=== PATIENT | female | born 1965 | race Caucasian/White ===

== ENCOUNTER 2017-08-15 19:55 | Inpatient (IN) | payer OTHER ==
--- NOTE | 2017-08-15 20:15 | CPEKG ---
Heart Rate: 86 RR Interval: 698 P-R Interval: 132 QRSD Interval: 76 QT Interval: 420 QTC Interval: 503 P [place]: 70 QRS [place]: 60 T Wave [place]: 7 EKG Severity - ABNORMAL ECG - EKG Impression: SINUS RHYTHM EKG Impression: PROBABLE LEFT ATRIAL ABNORMALITY EKG Impression: PROBABLE LEFT VENTRICULAR HYPERTROPHY EKG Impression: BORDERLINE PROLONGED QT INTERVAL Electronically Signed By: Kwan Taveras 15-Aug-2017 23:15:05
[2017-08-15 20:29] LABS: PLATELET COUNT 76 10^3/uL (150-400)
[2017-08-15] MEDS ORDERED: NS 1,000 ML IV ONE ×3 (20:33→22:25)
[2017-08-15] MEDS ORDERED: ONDANSETRON 4 MG/2 ML VIAL IVP ONE (20:38)
[2017-08-15] MEDS ORDERED: ONDANSETRON 4 MG/2 ML VIAL ONE (20:38)
--- NOTE | 2017-08-15 20:50 | EDPHY ---
General Time Seen by Provider: 08/15/17 20:33 Narrative: CHIEF COMPLAINT: Weakness, dehydration, loss of consciousness HISTORY OF PRESENT ILLNESS: Patient complains of Weakness, dehydration, fatigue with syncopal episode just prior to arrival. The patient was recently diagnosed with malaria and late July and treated for this. She was feeling better but never fully back to baseline. She was in [place] until 1 week prior to the diagnosis and late July. She began feeling weak, fatigued, febrile, nauseated. She was evaluated by a physician friend in [facility] and treated with anti malaise on medication. She did not take any prophylactic medication while traveling. She says she was here on August 11 with ongoing complaints. She was treated with nausea medications and has felt worse over the past few days. She has had no chest pain of any kind during this. No neck pain or stiffness. She has had a nonspecific rash to the neck and abdomen, both of which have resolved. She has no trauma or injury. No blood from any orifice. She reports that she lost consciousness when walking up some stairs to come to this hospital this evening. Her partner with her lowered to the ground there was no trauma. No other associated complaints or modifying factors. REVIEW OF SYSTEMS: Ten systems reviewed and are negative unless otherwise noted in the HPI PCP: None locally SPECIALISTS: None locally PAST MEDICAL HISTORY: Recent malaria with treatment PAST SURGICAL HISTORY: No recent surgical history SOCIAL HISTORY: Patient lives in [facility]. 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 She is visiting a friend here until tomorrow FAMILY HISTORY: Noncontributory EXAMINATION General Appearance: Alert, no distress, diaphoretic Head: normocephalic, atraumatic Eyes: Pupils equal and round, no conjunctival pallor or injection ENT, Mouth: Mucous membranes dry. Airway is widely patent. Neck: Normal inspection, supple, non-tender. No meningeal signs. Respiratory: Lungs are clear to auscultation. No wheezing rhonchi or crackles Cardiovascular: Regular rate and rhythm. No murmur. Gastrointestinal: Abdomen is soft and nontender. No tympany rigidity. Back: non-tender, no bony abnormalities Neurological: A&O, nonfocal, normal gait Skin: Warm and dry, mild dermatitis to the left anterior neck. No petechiae. No purpura. No vesicular lesions. No desquamation. No rash of the palms of the hands or the soles of the feet Extremities: Nontender, no pedal edema Psychiatric: Mood and affect normal DIFFERENTIAL DIAGNOSES: Including but not limited to malaria, viral illness, sepsis, pneumonia MDM: 8:33 p.m. Weakness, dehydration, fatigue and syncope just prior to arrival. Patient is at ongoing symptoms that she feels related to her malaria since mid July. She was feeling better after the initial treatment with Coartem, but now feeling much worse. No chest pain. No neck pain or stiffness. No headache. I have ordered laboratory studies including a malaria smear. We will also obtain blood cultures and lactic acid, although she does not meet SIRS criteria 9:30 p.m. CBC reveals mild anemia. There are multiple abnormalities of the manual differential. Chemistry reveals mildly elevated creatinine and subtle changes in the transaminases. Influenza pending. Wet smear pending. Patient will require admission to the hospital as she is too symptomatic to ambulate and appears clinically dehydrated. I feel she will need inpatient care at this time. 9:35 p.m. Case discussed with hospitalist Dr. Oliver. He will admit the patient is service. He is requesting infectious disease consultation. Patient is admitted in stable condition to a medical-surgical bed. 9:45 p.m. Case discussed with Dr. Ho. She will evaluate the patient emergency department. 10:[address] Ho is currently evaluating the patient 11:25 p.m. Patient has been evaluated by Dr. Ho in the emergency department. She is coordinating her antimalarial medication. Patient remains awake alert no acute distress admitted in stable condition. SUPERVISION: Patient was independently examined, but I discussed the case with my secondary supervising physician Dr. Taveras - History Smoking Status: Never smoked - Objective Vital Signs: Initial Vital Signs Temperature (C) 99.0 F 08/15/17 19:55 Heart Rate 90 08/15/17 19:55 Respiratory Rate 16 08/15/17 19:55 Blood Pressure 104/62 08/15/17 19:55 O2 Sat (%) 96 08/15/17 19:55 O2 Delivery Mode Room Air Allergies/Adverse Reactions: No Known Allergies Allergy (Unverified 08/15/17 20:00) Home Medications: Medication Instructions Recorded NK [No Known Home Meds] 08/15/17 Laboratory Results: Laboratory Results 08/15/17 20:00 08/15/17 20:00 Microbiology Results: MICROBIOLOGY 08/15/17 21:07 Blood Blood Culture - Preliminary Medications Given: Atovaquone/Proguanil (Malarone 250-100 Mg Tablet) 4 each PO DAILY@1800 L[place] PRN Reason: Protocol Stop: 08/18/17 23:29 Last Admin: 08/16/17 18:28 Dose: 4 each Discontinued Medications Sodium Chloride (Ns) 1,000 mls @ 0 mls/hr IV EDNOW ONE; Wide Open PRN Reason: Protocol Stop: 08/15/17 20:34 Last Admin: 08/15/17 20:41 Dose: 1,000 mls Sodium Chloride (Ns) 1,000 mls @ 0 mls/hr IV ONCE ONE PRN Reason: Wide Open Stop: 08/15/17 21:39 Last Admin: 08/15/17 21:35 Dose: 1,000 mls Sodium Chloride (Ns) 1,000 mls @ 0 mls/hr IV ONCE ONE PRN Reason: Wide Open Stop: 08/15/17 22:26 Last Admin: 08/15/17 22:27 Dose: 1,000 mls Sodium Chloride (Ns) 1,000 mls @ 3,000 mls/hr IV ONCE ONE Stop: 08/16/17 11:12 Last Admin: 08/16/17 11:28 Dose: 1,000 mls Ondansetron HCl (Zofran) 4 mg IVP EDNOW ONE Stop: 08/15/17 20:39 Last Admin: 08/15/17 20:42 Dose: 4 mg Departure - Departure Disposition: [facility] Acute Clinical Impression: Malaria, Volume depletion Nausea & vomiting Qualifiers: Vomiting type: unspecified Vomiting Intractability: non-intractable Qualified Code(s): R11.2 - Nausea with vomiting, unspecified Condition: Good
[2017-08-15 22:18] LABS: MALARIAL PREP POSITIVE (NONE SEEN)
[2017-08-15] MEDS ORDERED: ONDANSETRON DISINTEGRATING 4 MG TAB PO PRN (22:26)
[2017-08-15] MEDS ORDERED: ONDANSETRON 4 MG/2 ML VIAL IVP PRN (22:26)
--- NOTE | 2017-08-15 23:54 | PDGENHP ---
History and Physical - Chief Complaint Weakness, dizziness, fever - History of Present Illness 52 yo F w/ recent diagnosis of malaria presents with dizziness and fever. Patient was diagnosed with malaria on 07/19 after trip to [facility]. She was treated with 3 days of Coartem therapy. She felt better but not back to baseline until 4-5 days ago. At that point she noted progressive weakness, dizziness, fevers, and shaking chills after traveling to [place] [facility] She also experienced a brief syncopal episode while walking up the stairs prior to coming to the ED. Currently she is feeling somewhat better after 3 L IVF. History Information - Allergies/Home Medication List Allergies/Adverse Reactions: No Known Allergies Allergy (Unverified 08/15/17 20:00) Home Medications: NK [No Known Home Meds] 08/15/17 [Last Taken Unknown] I have personally reviewed and updated: family history, medical history - Past Medical History Additional medical history: Malaria - Surgical History Reports: no pertinent surgical hx - Family History Additional family history: CHF. Ovarian CA in mother - Social History Smoking Status: Never smoked Review of Systems Review of Systems: ROS: 10pt was reviewed & negative except for what was stated in HPI & below Physical Exam Physical Exam: Temp Pulse Resp BP Pulse Ox 37.1 C 74 20 103/61 96 08/15/17 22:00 08/15/17 23:30 08/15/17 23:30 08/15/17 23:30 08/15/17 23:30 Constitutional: no apparent distress, uncomfortable Eyes: PERRL, EOMI Ears, Nose, Mouth, Throat: moist mucous membranes, no oral mucosal ulcers Cardiovascular: regular rate and rhythym, no murmur, rub, or gallop Respiratory: no respiratory distress, clear to auscultation Gastrointestinal: normoactive bowel sounds, soft, non-tender abdomen Skin: warm, normal color Neurologic: AAOx3, CN II-XII Intact Psychiatric: interacting appropriately, not anxious Lab Data & Imaging Review 08/15/17 20:00 08/15/17 20:00 WBC 5.45 10^3/uL (3.80-9.50) 08/15/17 20:00 RBC 3.29 10^6/uL (4.18-5.33) L 08/15/17 20:00 Hgb 10.2 g/dL (12.6-16.3) L 08/15/17 20:00 Hct 30.1 % (38.0-47.0) L 08/15/17 20:00 MCV 91.5 fL (81.5-99.8) 08/15/17 20:00 MCH 31.0 pg (27.9-34.1) 08/15/17 20:00 MCHC 33.9 g/dL (32.4-36.7) 08/15/17 20:00 RDW 15.4 % (11.5-15.2) H 08/15/17 20:00 Plt Count 76 10^3/uL (150-400) L 08/15/17 20:00 MPV 11.1 fL (8.7-11.7) 08/15/17 20:00 Neut % (Auto) Not Reported 08/15/17 20:00 Lymph % (Auto) Not Reported 08/15/17 20:00 [place] % (Auto) Not Reported 08/15/17 20:00 Eos % (Auto) Not Reported 08/15/17 20:00 Baso % (Auto) Not Reported 08/15/17 20:00 Nucleat RBC Rel Count 0.0 % (0.0-0.2) 08/15/17 20:00 Absolute Neuts (auto) Not Reported 08/15/17 20:00 Absolute Lymphs (auto) Not Reported 08/15/17 20:00 Absolute Monos (auto) Not Reported 08/15/17 20:00 Absolute Eos (auto) Not Reported 08/15/17 20:00 Absolute Basos (auto) Not Reported 08/15/17 20:00 Absolute Nucleated RBC 0.00 10^3/uL (0-0.01) 08/15/17 20:00 Immature Gran % Not Reported 08/15/17 20:00 Seg Neutrophils % 65 % 08/15/17 20:00 Band Neutrophils % 18 % 08/15/17 20:00 Lymphocytes % 14 % 08/15/17 20:00 Monocytes % 3 % 08/15/17 20:00 Immature Gran # Not Reported 08/15/17 20:00 Absolute Seg Neuts 3.54 10^/uL (1.70-6.50) 08/15/17 20:00 Absolute Band Neuts 0.98 10^3/uL (0.00-0.70) H 08/15/17 20:00 Absolute Lymphocytes 0.76 10^3/uL (1.00-3.00) L 08/15/17 20:00 Absolute Monocytes 0.16 10^3/uL (0.30-0.80) L 08/15/17 20:00 Atypical Lymphocytes 2+ H 08/15/17 20:00 Platelet Estimate DECREASED (ADEQ) L 08/15/17 20:00 Polychromasia 1+ H 08/15/17 20:00 VBG Lactic Acid 1.1 mmol/L (0.7-2.1) 08/15/17 21:03 Sodium 132 mEq/L (135-145) L 08/15/17 20:00 Potassium 3.5 mEq/L (3.5-5.2) 08/15/17 20:00 Chloride 104 mEq/L (97-110) 08/15/17 20:00 Carbon Dioxide 20 mEq/l (22-31) L 08/15/17 20:00 Anion Gap 8 mEq/L (8-16) 08/15/17 20:00 BUN 26 mg/dL (7-23) H 08/15/17 20:00 Creatinine 1.1 mg/dL (0.6-1.0) H 08/15/17 20:00 Estimated GFR 52 08/15/17 20:00 Glucose 126 mg/dL (70-100) H 08/15/17 20:00 Calcium 8.0 mg/dL (8.5-10.4) L 08/15/17 20:00 Total Bilirubin 1.3 mg/dL (0.1-1.4) 08/15/17 20:00 Conjugated Bilirubin 0.4 mg/dL (0.0-0.5) 08/15/17 20:00 Unconjugated Bilirubin 0.9 mg/dL (0.0-1.1) 08/15/17 20:00 AST 82 IU/L (14-46) H 08/15/17 20:00 ALT 26 IU/L (9-52) 08/15/17 20:00 Alkaline Phosphatase 73 IU/L (38-126) 08/15/17 20:00 Troponin I 0.015 ng/mL (0.000-0.034) 08/15/17 20:00 Total Protein 10.0 g/dL (6.3-8.2) H 08/15/17 20:00 Albumin 3.7 g/dL (3.5-5.0) 08/15/17 20:00 Lipase 65 IU/L (23-300) 08/15/17 20:00 Nasal Influenza A PCR NEGATIVE FOR FLU A (NEGATIVE) 08/15/17 20:52 Nasal Influenza B PCR NEGATIVE FOR FLU B (NEGATIVE) 08/15/17 20:52 RSV (PCR) NEGATIVE FOR RSV (NEGATIVE) 08/15/17 20:52 Imaging Review: Imaging Impressions Chest X-Ray 08/15/17 20:51 Impression: Mild peribronchial thickening, which could be related to bronchitis/ airways disease or mild fluid overload. Assessment & Plan Assessment: 52 yo F presents with ongoing symptoms of recent malaria infection. Plan: 1. Syncope - 2/2 hypovolemia, anemia, and fever from ongoing malarial symptoms. - S/p 3L IVF in ED - Continue to monitor 2. Malaria - Initially diagnosed on 07/19 in [facility] [place] after trip to [facility]; treated with 3 days of Coartem. Diagnosed as falciparum malaria at that time. - Fluid resuscitation as above, additional IVF PRN - Malaria smear and path review ordered - ID Dr. Ho consulted, will manage therapy 3. Anemia - Most likely related to malaria infection, monitor CBC. Diet - Regular Code - Full Ppx - SCDs Dispo - Admit under observation status
--- NOTE | 2017-08-16 00:22 | GCON ---
[f rep st] CONSULTATION INFECTIOUS DISEASE CONSULTATION DATE OF CONSULTATION: 08/15/2017 REFERRING PHYSICIAN: Emilio Garcia PA-C REASON FOR CONSULTATION: Malaria. HISTORY OF PRESENT ILLNESS: This is a 52-year-old healthy woman, who normally lives in [place], who recently traveled to [facility] and [facility] for a combination of relaxation and work trip. They were in [facility] June 22 to , then they went to [facility] the through 06 of July. She did not particularly notice mosquito bites while traveling. She denies specific tick bites. Upon returning, she developed myalgias on July 16, chills, and then subsequently developed a high fever and was evaluated by a local infectious disease provider and diagnosed with malaria falciform with 4% parasitemia and was treated with 3 days of Coartem. She immediately felt improved with this therapy. There had been some concern with dual infection and was started on Primaquine at some point. She traveled to [place] due to a collaborative project with the [facility] and local family, who live here, and on 08/11/2017 she developed walking fatigue, achiness and dizziness, and starting on the and today, the , she developed shaking chills with a T-max of 104.9. She denies rash. She had a syncopal episode today prior to presentation. She has some low appetite and otherwise no prominent GI symptoms, no urinary symptoms, no joint swelling. She did have a transient rash that was macular papular on her neck that is now resolved. As a part of her workup, she had an ultrasound that showed no splenomegaly by her report. Their plans were to return to [place] tomorrow, that has been canceled, and night they are actually traveling back to [facility], [facility] in [facility] [place]. REVIEW OF SYSTEMS: A complete 10-point review of systems was performed and is negative except as mentioned in the HPI. PAST MEDICAL HISTORY: Treatment of malaria as per HPI, otherwise negative. PAST SURGICAL HISTORY: Negative. SOCIAL HISTORY: She lives in [place]. 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 She is and is visiting a friend here on [place]. No tobacco. Occasional alcohol. ALLERGIES: NKDA. MEDICATIONS: She is on intermittent Zofran since her illness. FAMILY HISTORY: Reviewed and noncontributory. PHYSICAL EXAM: VITAL SIGNS: Blood pressure 90/58, heart rate 74, respiratory rate 18, saturation 97% on room air. Here in the emergency room, her T-max is 99. GENERAL: This is a pleasant, mildly pale woman, who appears very healthy and fit. No respiratory distress. HEENT: She has pallor of the conjunctivae. No splint or hemorrhages. No jaundice. Oropharynx is dry. Excellent dentition. NECK: Supple. No meningismus. CARDIOVASCULAR: Regular rate, no murmur. CHEST: Clear to auscultation bilaterally. ABDOMEN: Soft, nontender. She did have some tenderness of the right liver edge. No rebound. No suprapubic pain. EXTREMITIES: No clubbing, cyanosis, or edema. NEUROLOGICAL: She was moving all 4 extremities equally and had fluent speech. She is alert and oriented x4. LABORATORY DATA: White count 5.4, hematocrit 30, platelets of 76, 65% neutrophils, 18% bands. Sodium 132, potassium 3.5, chloride 104, bicarb 20, BUN 26, creatinine 1.1, glucose 126. Blood cultures are pending. AST 82, alkaline phosphatase 76, ALT 26, total protein 10 with an albumin of 3.7, total bilirubin 1.3. Preliminary review of the smear is positive for parasites consistent with malaria. ASSESSMENT AND PLAN: 52-year-old woman, who was previously treated for malaria , told it was malaria falciparum with a 4% parasitemia, was treated with 3 days of Coartem, now presents with recurrent symptoms including fever, malaise, achiness similar to her prior episode with corresponding bandemia, thrombocytopenia, anemia, mild renal insufficiency, mild hepatitis and mildly elevated glucose with a preliminary blood smear that is positive. 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 Could also consider insufficient duration of treatment for first episode (although she received standard treatment course) or presence of Artemether resistance. 1. Start Malarone 4 tablets daily with high fat food, duration based on response to treatment. Would monitor daily complete blood count and complete metabolic panel. Would add on malaria PCR. 2. If co-infection confirmed, would give primaquine 2 tablets once daily x 14 days (already known G6PD negative) after Malarone 3. If somehow malaria is not confirmed, can consider other etiologies of her illness, particularly dengue or chikungunya could have these presentations, but at this time with the preliminary positive smear, would hold off on further evaluation. Thank you for this consultation. Time 80 min , with greater than 50% time spent with education and counseling regarding the treatment of malaria, reasons for failure and potential differential diagnosis if not malaria. Discussed risks and benefits of Malarone specifically food requirements and importance of hospitalization for ongoing monitoring.. /[id number]/MODL MTDD
[2017-08-16] MEDS: MALARONE 250/100 MG TAB PO SCH ×2 (00:55→18:28)
[2017-08-16 04:46] LABS: PLATELET COUNT 65 10^3/uL (150-400)
--- NOTE | 2017-08-16 09:09 | ASMTCASEMG ---
Living Arrangements What is your living Answers: With Spouse arrangement? Who do you live with? Type Of Residence What kind of residence do Answers: House you live in? Discharge Plan Comments Coordination Status Comments Notes: Pt is a 52 y/o female admitted for syncope, weakness, dehydration and recent malaria. Pt will most likely d/c independent when medically stable. No therapies ordered at this time. CM available for changes. Plan: Independent Date Signed: 08/16/2017 09:08 AM Electronically Signed By:WILLIAM Pop
[2017-08-16] MEDS ORDERED: NS 1,000 ML IV ONE (10:53)
--- NOTE | 2017-08-16 13:32 | PCMIDPN ---
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 Patient had been treated with Coartem for 3 days almost a month ago which should be adequate treatment. This recurrence of symptoms with significant parasite load either indicates a failure of this therapy to adequately treat p. falciparum. Or represents Co infection with p. vivax and recrudescence of vivax parasitemia due to a truncated primaquine therapy. PCR is pending at [facility]. Expect this result tomorrow. In the meantime continue Malarone. Clinically the patient is feeling much better. Plan: 1. Continue Malarone treatments. 2. Continue fluid resuscitation. 3. Physical therapy or nursing to help ambulate. 08/16/17 13:29 Subjective: Patient and her are visiting in the room. She has no new complaint. Still feels a bit dizzy. Feels less ill than yesterday. No fevers or chills. Objective: Malarone #2 Vital Signs Temp Pulse Resp BP Pulse Ox 36.5 C 68 16 91/63 L 97 08/16/17 11:33 08/16/17 11:33 08/16/17 11:33 08/16/17 11:33 08/16/17 11:33 Laboratory Results 08/16/17 04:29 08/16/17 04:29 08/15/17 08/16/17 08/17/17 05:59 05:59 05:59 Intake Total 3015 Output Total 1700 Balance 1315 - Physical Exam General Appearance: WD/WN, alert, no apparent distress, non-toxic Cardiac/Chest: regular rate, rhythm, No tachycardia Extremities: non-tender, normal inspection Skin: normal color, warm/dry, No rash Neuro/Psych: alert, normal mood/affect, oriented x 3 ICD10 Worksheet Patient Problems: Problems Problem Status Onset Malaria Acute Nausea & vomiting Acute Volume depletion Acute
--- NOTE | 2017-08-16 19:32 | HOSPPROG ---
Hospitalist Progress Note Assessment/Plan: # Acute Malaria - s/p treatment for falciparum - recurrent high fevers - malaria PCR pending - atovaquone started overnight - cont supportive care - ID consulting # syncope - suspect 2/2 hypovolemia and anemia - hgb 8- oxygen saturations 95% on RA EKG (personally reviewed and interpreted) sinus no acute STT changes - cont aggressive IVF if PO inadequate - cont supportive care # diarrhea - possibly related to meds or Poor po intake - gi pathogen panel - cont IVF as above # fatigue - even prior to admission - send thyroid studies and vitamin studies # prop - lovneox # diet- regular # dispo - > 2mN as remains acutely ill requiring IVF resuscitation and monitoring I have discussed the case with ID - will cont Atovaquone and await malarial PCR Subjective: still feels very dizzy Objective: Vital Signs Temp Pulse Resp BP Pulse Ox 36.3 C 68 16 120/64 100 08/16/17 15:14 08/16/17 15:14 08/16/17 15:14 08/16/17 15:14 08/16/17 15:14 Microbiology 08/16/17 15:15 Gastrointestinal Tract Panel (PCR) - Final Stool No Organism Detected Laboratory Results 08/16/17 04:29 08/16/17 04:29 08/15/17 08/16/17 08/17/17 05:59 05:59 05:59 Intake Total 3015 Output Total 1700 350 Balance 1315 -350 - Physical Exam Constitutional: no apparent distress Eyes: anicteric sclera Ears, Nose, Mouth, Throat: moist mucous membranes Cardiovascular: regular rate and rhythym Respiratory: no respiratory distress Genitourinary: no bladder fullness Skin: warm Musculoskeletal: No asymmetric calves Neurologic: AAOx3 Psychiatric: interacting appropriately Lymph, Heme, Immunologic: no cervical LAD ICD10 Worksheet Patient Problems: Problems Problem Status Onset Malaria Acute Nausea & vomiting Acute Volume depletion Acute
--- NOTE | 2017-08-17 12:12 | PCMIDPN ---
Assessment/Plan: Assessment/Plan: 1. 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 Awaiting PCR - Both countries she traveled to have P. falciparum (predominant) and P. vivax reported. - Currently on Malarone D#3 -Concerned that she has had significant amount of watery diarrhea over past two days, may not have had enough drug exposure/absorption given that. - Needs repeat parasite % done, will recheck in AM. - I appreciated splenomegaly on my exam---will check USG to confirm and to ensure no other complication such as rupture. Counseled patient that if splenomegaly found, need to avoid trauma to region. -OF note: admission EKG reviewed: has borderline prolonged QT interval. May be contraindication for certain treatment options. Will reassess after further data from pending studies. -Recommend repeating EKG and possible doing 2D-echo. care coordinated with hospitalist team. -Reviewed labs with patient, at bedside. -Reviewed plan of care, checking USG and my recommendations to stay in hospital for care for now given ongoing anemia, thrombocytopenia, and pending work up with parasite load etc. - Recheck cbc, cmp in AM. - blood cx ngtd, gi panel neg, AST elevated. - care coordinated with hospitalist team, pharmacy. -STools have finally slowed down and started to form -Continue Malarone for now pending follow up peripheral smear and parasite load , pending studies. . meds malarone D#3 Subjective: Afebrile. Feeling better as of yesterday afternoon. Was having pretty large volume watery diarrhea over past two days, that has just started to settle down. Today stools more soft in nature. denies abd pain. having some left pleuritic pain. denies sob, cough. tells me she took 7 days of primaquin sometime after course of Co-maximiliano. Dosage was told me as 26.3mg. She states she took one pill a day but only took for 7 days because she wasn't feel well. She did not take malaria ppx while in [place] or use mosquito repellent. she only slept under mosquito bed netting briefly and then discontinued that due to heat. Objective: Vital Signs Temp Pulse Resp BP Pulse Ox 36.8 C 82 16 121/69 H 100 08/17/17 08:38 08/17/17 08:38 08/17/17 08:38 08/17/17 08:38 08/17/17 08:38 Microbiology 08/16/17 15:15 Gastrointestinal Tract Panel (PCR) - Final Stool No Organism Detected Laboratory Results 08/17/17 04:32 08/17/17 04:32 08/16/17 08/17/17 08/18/17 05:59 05:59 05:59 Intake Total 3015 Output Total 1700 350 Balance 1315 -350 - Physical Exam General Appearance: alert, no apparent distress EENT: No thrush, No conjunctival petechiae Respiratory: lungs clear Cardiac/Chest: regular rate, rhythm Extremities: No swelling Abdomen: normal bowel sounds, non-tender, soft, splenomegaly (appreciated on exam), No distended Skin: No rash, No erythema - Time Spent With Patient Time Spent with Patient: greater than 35 minutes Time Spent with Patient: Greater than 35 minutes spent on this patients care, greater than 50% of time spent counseling, educating, and coordinating care regarding the above mentioned plan. ICD10 Worksheet Patient Problems: Problems Problem Status Onset Malaria Acute Nausea & vomiting Acute Volume depletion Acute
--- NOTE | 2017-08-17 13:19 | HOSPPROG ---
Hospitalist Progress Note Assessment/Plan: # Acute Malaria - s/p treatment for falciparum - recurrent high fevers prior to admission No fvers overnight - parasitemia estimated at 4% by smear - malaria PCR pending - atovaquone started overnight - cont supportive care - ID consulting # Acute anemia- hgb dropped to 7.2 overnight - although sx have improved - transfuse today - continue to monitor daily # syncope - suspect 2/2 hypovolemia and anemia - hgb low- oxygen saturations 95 % on RA EKG (personally reviewed and interpreted) sinus no acute STT changes - cont good PO - transfusion today - cont supportive care # diarrhea - possibly related to meds or Poor po intake - gi pathogen panel negative - cont IVF as above # fatigue - even prior to admission - TSH and B12 wnl # prop - lovneox # diet- regular # dispo - > 2mN as remains acutely ill requiring IVF resuscitation and monitoring I have discussed the case with ID - will ideally keep to complete tx and recheck parasitemia post treatment Subjective: feels better Objective: Vital Signs Temp Pulse Resp BP Pulse Ox 37.1 C 92 18 139/75 H 99 08/17/17 12:45 08/17/17 12:45 08/17/17 12:45 08/17/17 12:45 08/17/17 12:45 Microbiology 08/16/17 15:15 Gastrointestinal Tract Panel (PCR) - Final Stool No Organism Detected Laboratory Results 08/17/17 04:32 08/17/17 04:32 08/16/17 08/17/17 08/18/17 05:59 05:59 05:59 Intake Total 3015 Output Total 1700 350 Balance 1315 -350 - Physical Exam Constitutional: no apparent distress Eyes: anicteric sclera Ears, Nose, Mouth, Throat: moist mucous membranes Cardiovascular: regular rate and rhythym Respiratory: no respiratory distress Gastrointestinal: normoactive bowel sounds Genitourinary: no bladder fullness Skin: warm Musculoskeletal: No asymmetric calves Neurologic: AAOx3 Psychiatric: interacting appropriately Lymph, Heme, Immunologic: no cervical LAD ICD10 Worksheet Patient Problems: Problems Problem Status Onset Malaria Acute Nausea & vomiting Acute Volume depletion Acute
[2017-08-17] MEDS: ACETAMINOPHEN 325 MG TAB PO PRN ×2 (13:50→18:25)
--- NOTE | 2017-08-17 18:02 | CPEKG ---
Heart Rate: 83 RR Interval: 723 P-R Interval: 144 QRSD Interval: 82 QT Interval: 388 QTC Interval: 456 P [place]: 71 QRS [place]: 67 T Wave [place]: 27 EKG Severity - NORMAL ECG - EKG Impression: SINUS RHYTHM EKG Impression: SHORT SC INTERVAL EKG Impression: LVH BY VOLTAGE EKG Impression: MORE NORMAL T WAVES SINCE AUGUST 15, 2017 Electronically Signed By: Connor Jj 17-Aug-2017 20:24:36
[2017-08-17] MEDS: MALARONE 250/100 MG TAB PO SCH (18:26)
[2017-08-18 05:12] LABS: PLATELET COUNT 87 10^3/uL (150-400)
[2017-08-18 06:17] LABS: MALARIAL PREP POSITIVE (NONE SEEN)
--- NOTE | 2017-08-18 10:13 | ECHO ---
[email or web address] [address] [address] Main: [phone] Fax: Transthoracic Echocardiogram Name: KAUR SCHREIBER MR#: [id number] Study Date: 08/18/2017 Study Time: 08:06 AM Date of : 1965 Age: 52 year(s) Height: 170.2 cm (67 in.) Weight: 63.96 kg (141 lb.) BSA: 1.74 m2 Gender: Female Examination: Echo Indication: QT prlongation/severe malaria Image Quality: Contrast: Requested by: Thelma Ruvalcaba BP: / Heart Rate: Rhythm: Indication: QT prlongation/severe malaria Procedure Staff Drywall Stripper Helper: Latonya Mccoy [facility] Reading Physician: Magdaleno Marcano MD Requesting Provider: Conclusions: Normal size left ventricle. No LV hypertrophy. Normal global systolic LV function. EF is 72 %. No regional wall motion abnormality. Normal size right ventricle. The left atrium is normal in size. The right atrium is normal in size. The mitral valve is normal in appearance and function. Trivial mitral valve regurgitation. The aortic valve is normal in appearance and function. The tricuspid valve is normal in appearance and function. Mild tricuspid regurgitation is present. The pulmonary artery pressure is normal. The pulmonic valve is normal in appearance and function. Trivial pulmonic valve regurgitation. The aorta is normal. Trivial anterior pericardial effusion. Measurements: Chambers Valvular Assessment AV/MV Valvular Assessment TV/PV Normal Normal Normal Name Value Range Name Value Range Name Value Range Ao Katrina (MM): 3.0 cm (2.2 cm-3.7 AV meanP mmHg ( - ) TR Vmax: 2.40 mm/s ( - ) cm) MV E Vmax: 0.94 m/s ( - ) TR PGmax: 23 mmHg ( - ) IVSd (2D): 1.0 cm (0.6 cm-1.1 MV A Vmax: 0.62 m/s ( - ) syst. PAP: 28 mmHg ( - ) cm) MV E/A: 1.52 ( - ) LVDd (2D): 4.8 cm (3.9 cm-5.3 cm) Patient: KAUR SCHREIBER Study Date: 08/18/2017 Page 1 of 2 08:06 AM LVDs (2D): 2.9 cm (2.1 cm-4 cm) LVPWd (2D): 0.8 cm ( - ) LVEF (MOD4): 72 % (>=55 %) Continued Measurements: Chambers Valvular Assessment AV/MV Valvular Assessment TV/PV Name Value Name Value Name Value LADs: 3.2 cm MV E' Septal: 0.08 m/s CVP (est.): 5 mmHg LADs Lon.1 cm MV E/E' Septal: 12.50 LA Area: 18.9 cm2 MV E/E' Lateral: 6.00 Findings: Left Ventricle: Normal size left ventricle. No LV hypertrophy. Normal global systolic LV function. EF is 72 %. No regional wall motion abnormality. Right Ventricle: Normal size right ventricle. Left Atrium: The left atrium is normal in size. Right Atrium: The right atrium is normal in size. Mitral Valve: The mitral valve is normal in appearance and function. Trivial mitral valve regurgitation. Aortic Valve: The aortic valve is normal in appearance and function. Tricuspid Valve: The tricuspid valve is normal in appearance and function. Mild tricuspid regurgitation is present. The pulmonary artery pressure is normal. Pulmonic Valve: The pulmonic valve is normal in appearance and function. Trivial pulmonic valve regurgitation. Aorta: The aorta is normal. Pericardium: Trivial anterior pericardial effusion. (No Signature Object) Patient: KAUR SCHREIBER Study Date: 08/18/2017 Page 2 of 2 08:06 AM [id number]
--- NOTE | 2017-08-18 11:53 | HOSPPROG ---
Hospitalist Progress Note Assessment/Plan: Hospitalist Progress Note Assessment/Plan: # Acute Malaria - s/p treatment for falciparum - recurrent high fevers prior to admission No fevers overnight - parasitemia estimated at 4% by smear, repeat this am down to <0.1% - cont atovaquone per ID - cont supportive care # Acute anemia- hgb dropped to 7.2, stable at 7.3 this am, hemodynamically stable, no strong indication for transfusion today - transfusion reaction yest was just a low grade fever, but prbc's stopped - continue to monitor daily, would pre-treat with tylenol if needs transfusion (if hgb <7) # Thrombocytopenia - U/S reviewed, +splenomegaly in setting of malaria. Plts up to 87K - cont to monitor # syncope - suspect 2/2 hypovolemia and anemia - hgb low- oxygen saturations 95 % on RA EKG (personally reviewed and interpreted) sinus no acute STT changes - cont good PO - cont supportive care # diarrhea - resolved # fatigue - even prior to admission - TSH and B12 wnl # prop - lovenox held with low plts, SCD's, ambulation # diet- regular # dispo - > 2mN as remains acutely ill requiring IVF resuscitation and monitoring Subjective: PT feels better. No pain. No more fevers (had low grade temp during prbc transfusion, which was stopped yesterday). Eating well. A bit anxious. Objective: Vital Signs Temp Pulse Resp BP Pulse Ox 36.6 C 74 16 112/66 100 08/18/17 07:55 08/18/17 07:55 08/18/17 07:55 08/18/17 07:55 08/18/17 07:55 Laboratory Results 08/18/17 04:45 08/18/17 04:45 08/17/17 08/18/17 08/19/17 05:59 05:59 05:59 Intake Total 900 Output Total 350 Balance -350 900 - Physical Exam Constitutional: no apparent distress Eyes: PERRL Ears, Nose, Mouth, Throat: moist mucous membranes Cardiovascular: regular rate and rhythym, no murmur, rub, or gallop Respiratory: no respiratory distress, clear to auscultation Gastrointestinal: normoactive bowel sounds, other (nd, nt, +splenomegaly) Skin: warm Musculoskeletal: full muscle strength Neurologic: AAOx3 Psychiatric: interacting appropriately ICD10 Worksheet Patient Problems: Problems Problem Status Onset Malaria Acute Nausea & vomiting Acute Volume depletion Acute
--- NOTE | 2017-08-18 12:56 | PDMN ---
Medical Necessity Medical necessity: M35 anemia- A-2 days : hgb dropped to 7.2- 2 units PRBC- transfusion rxn yest. prbc stopped., cont to monitor., thrombocytopenia, + splenomegaly on U/S in setting of malaria, low plts. ( 76,65,60,87) cont to monitor., syncope suspect 2/2 hypovolemia and anemia, cont to follow., per ID- initial EKG with prolonged QT interval, rec. repeat, and echo., further monitoring needed > 48 hours. change to INPT 08/18/2017 @ 12:32
--- NOTE | 2017-08-18 14:18 | ASMTCMCOM ---
CM Note CM Note Notes: Plan remains the same, anticipate pt will dc home w/support of when medically stable. CM available for any changes. DC Plans: Independent Date Signed: 08/18/2017 02:18 PM Electronically Signed By:Lamar Miller RN
[2017-08-18 16:02] VITALS: BP 122/84
--- NOTE | 2017-08-18 16:27 | GDS ---
[f rep st] DISCHARGE SUMMARY DISCHARGE DIAGNOSES: 1. Recurrent malaria falciparum. 2. Acute anemia, likely secondary to hemolysis in the setting of acute malarial infection. 3. Thrombocytopenia, secondary to splenomegaly. 4. Splenomegaly, secondary malarial infection. 5. Syncope, likely secondary to hypovolemia and anemia. 6. Diarrhea, resolved. CONSULTANTS: Dr. Chelsea Ho, Infectious Disease. HISTORY OF DETAILS: Please see the History and Physical dated August 15, 2017. In brief, the patient is a 52-year-old female who is otherwise healthy and recently traveled to [facility]. In mid July, upon return from [facility], she was diagnosed with malaria and treated with 3 days of Coartem. Her sym ptoms improved. However, 4-5 days prior to presentation, she had recurrent weakness, fevers, chills, and dizziness after traveling to [place] from [facility]. She apparently had a syncopal episode, prompting her presentation to the emergency department. She was diagnosed with recurrent malaria, a dmitted to the hospital for further management. HOSPITAL COURSE: Patient was admitted to the med/surg unit. She received aggressive IV fluid resusc itation. Malaria smear revealed a 4% parasitemia. Infectious disease consult was obtained. She was treated with Malarone 4 tablets daily for 3 days and, per further ID direction, I will discharge her on 4 more days of Malarone treatment at the same dose. Her repeat smear on the day of discharge jamil ws less than 0.1% parasitemia. She did develop an acute anemia and thrombocytopenia, likely secondar y to hemolysis and splenomegaly in the setting of acute malarial infection. Packed red blood cell tr ansfusion was ordered on the day prior to discharge for hemoglobin of 7.2. She developed a low-grade fever during the transfusion. Transfusion was stopped, and she was treated with Tylenol and Benadry l. Her hemoglobin the following day was 7.3. She is hemodynamically stable. We opted to defer furt her transfusions. Her platelet count has improved up to 87,000 on the day of discharge. I note a mi ld bump in her LFTs with a bilirubin up to 1.8 and AST of 120. This may be a lag from the acute delmer rial infection. She should have close outpatient followup labs including a CBC and CMP, and this ramon l be evaluated by infectious disease team. I discussed case study on the day of discharge, and they feel she is stable for discharge home with close outpatient followup. DISPOSITION: The patient is discharged home in stable condition. FOLLOWUP: Dr. Chelsea Ho, [facility] for Infectious Disease. Repeat CBC and complete metabolic panel in 1-2 days. DISCHARGE MEDICATIONS: Please see [facility] for completed outpatient medication list. New medication s on discharge include Malarone 250/100, four each p.o. daily for 4 more days. /[id number]/MODL
[2017-08-18] MEDS: MALARONE 250/100 MG TAB PO SCH (16:52)
--- NOTE | 2017-08-18 18:29 | PCMIDPN ---
Assessment/Plan: Assessment/Plan: * P falciparum malaria: Marked clinical improvement. Significant reduction in parasitemia on blood smear today. Hematocrit stable with mild improvement in platelets. Given recurrent nature of malaria, will complete a 7 day course of Malarone. Given clinical improvement and stability of labs, think patient can be discharged with further outpatient care. Will arrange for outpatient CBC, CMP and malaria smear to ensure resolution of parasitemia tomorrow. Patient will be traveling to [place] again in August and a prescription for malaria prophylaxis with Malarone daily was also provided to patient at time of discharge. Recommend that she seek travel-related advice prior to her travel as she may need additional vaccinations such as typhoid vaccine. Unclear why patient has experienced recurrence as resistance to artemisinin derivatives in [place] should be rare (present in [place]). Advised patient to notify my office for recurrent fever, chills, nausea, vomiting or diarrhea. Time spent, 40 min, of which greater than half was spent in education/counseling /coordination of care related to malaria. 08/18/17 18:24 08/18/17 18:32 Subjective: Patient feels significantly improved. Had fever at time of attempted blood transfusions yesterday per with transfusions not completed. Eating well. Plans to travel back to [place] over weekend. Objective: Vital Signs Temp Pulse Resp BP Pulse Ox 36.8 C 75 16 122/84 H 94 08/18/17 16:00 08/18/17 16:00 08/18/17 16:00 08/18/17 16:00 08/18/17 16:00 Laboratory Results 08/18/17 04:45 08/18/17 04:45 08/17/17 08/18/17 08/19/17 05:59 05:59 05:59 Intake Total 900 Output Total 350 Balance -350 900 Malarone # 3 Malaria species by PCR is Plasmodium falciparum Malaria smear showing less than 0.1% parasitemia Blood cultures x2 no growth Laboratory Tests 08/18/17 04:45 Total Bilirubin 1.8 H D AST 120 H ALT 69 H Alkaline Phosphatase 69 Albumin 2.9 L - Physical Exam General Appearance: alert, no apparent distress EENT: No scleral icterus, No thrush Respiratory: lungs clear, No respiratory distress Neck: supple, No meningismus Cardiac/Chest: regular rate, rhythm Abdomen: non-tender, No distended, No splenomegaly Skin: No rash Neuro/Psych: alert, No confused ICD10 Worksheet Patient Problems: Problems Problem Status Onset Malaria Acute Nausea & vomiting Acute Volume depletion Acute
== END 2017-08-18 17:45 | disposition home or self-care (01) | DRG 869 ==
LOC: INTOOBSV 21:32 → OBSVTOIN 21:32 → F3E 08-16 00:35
PROVIDERS: ADMIT Internal Medicine; ATTEND Hospitalist
PROC: 30233N1 Transfusion of Nonautologous Red Blood Cells into Peripheral Vein, Percutaneous Approach (ICD-10-PCS; principal; 2017-08-17)
DX: B50.9 Plasmodium falciparum malaria, unspecified (principal); D64.89 Other specified anemias; D69.6 Thrombocytopenia, unspecified; R19.7 Diarrhea, unspecified
CPT/HCPCS: 82607-90; 96374; G0378; J1200; J2405; P9016